=== PATIENT | female | born 1985 | race Caucasian/White ===

== ENCOUNTER 2017-09-29 04:33 | Inpatient (IN) | payer OTHER, MEDICAID ==
[~2017-09-29] VITALS: Ht 153.2 cm; Wt 71.0 kg
[~2017-09-29 04:33] MED LIST: IRON1TAB2 PO; PREN1TAB60 PO
[2017-09-29] MEDS ORDERED: OXYTOCIN 30U/ 0.9% NaCL 500ML 500 ML IV PRN (04:35)
[2017-09-29] MEDS ORDERED: OXYTOCIN 30U/ 0.9% NaCL 500ML 500 ML IV ONE (04:35)
[2017-09-29] MEDS ORDERED: D5%-LACTATED RINGERS 1,000 ML IV SCH (04:35)
[2017-09-29] MEDS ORDERED: OXYTOCIN 30U/ 0.9% NaCL 500ML 500 ML ONE ×2 (04:58→15:38)
[2017-09-29] MEDS ORDERED: NEWBORN KIT ONE (04:58)
[2017-09-29 05:00] VITALS: BP 115/73
[2017-09-29] MEDS ORDERED: PLEASE ENTER HEIGHT AND WEIGHT MC SCH (05:00)
[2017-09-29] MEDS ORDERED: ONDANSETRON 2MG/ML, 2ML IVPush PRN (05:00)
[2017-09-29] MEDS ORDERED: FENTANYL PF 100 MCG/2ML IVPush PRN (05:00)
[2017-09-29] MEDS ORDERED: FENTANYL PF 100 MCG/2ML IV PRN (05:00)
[2017-09-29] MEDS: LACTATED RINGERS 1,000 ML IV SCH ×2 (05:16→09:00)
[2017-09-29 05:25] LABS: HEMATOCRIT 34.7 % (34.6-47.8); HEMOGLOBIN 11.6 g/dL (11.7-16.4); WHITE BLOOD COUNT 3.7 x10^3/uL (3.4-10)
[2017-09-29] MEDS ORDERED: FENTANYL/BUPIV./NS/PF 250 ML EPIDCONT SCH (09:16)
[2017-09-29] MEDS ORDERED: LACTATED RINGERS 1,000 ML IV SCH (09:16)
[2017-09-29] MEDS ORDERED: NALOXONE 0.4 MG/ML, 1ML IVPush PRN (09:30)
[2017-09-29] MEDS ORDERED: LACTATED RINGERS 1,000 ML IVBOLUS PRN (09:30)
[2017-09-29] MEDS ORDERED: EPHEDRINE 50 MG/ML, 1ML IVPush PRN (09:30)
[2017-09-29] MEDS ORDERED: FENTANYL/BUPIV./NS/PF 250 ML EPIDCONT ONE (10:52)
[2017-09-29] MEDS ORDERED: BUPIVACAINE/PF 0.25% ONE (10:52)
[2017-09-29] MEDS ORDERED: BUPIVACAINE 0.25% ONE (11:03)
[2017-09-29] MEDS ORDERED: FENTANYL PF 100 MCG/2ML ONE (11:03)
[2017-09-29] MEDS ORDERED: ACETAMINOPHEN 325 MG TABLET ONE (12:55)
[2017-09-29] MEDS: ACETAMINOPHEN 325 MG TABLET PO PRN (12:57)
[2017-09-29] MEDS ORDERED: MISOPROSTOL 200 MCG TABLET ONE (14:42)
[2017-09-29] MEDS: OXYTOCIN 30U/ 0.9% NaCL 500ML 500 ML IV SCH (16:01)
[2017-09-29] MEDS ORDERED: MISOPROSTOL 200 MCG TABLET PR PRN (16:30)
[2017-09-29] MEDS ORDERED: OXYcodone IR 5MG TABLET PO PRN ×2 (16:30)
[2017-09-29] MEDS ORDERED: ACETAMINOPHEN 325 MG TABLET PO PRN (16:30)
[2017-09-29] MEDS ORDERED: ONDANSETRON 2MG/ML, 2ML IV PRN (16:30)
[2017-09-29] MEDS ORDERED: DOCUSATE 100 MG CAPSULE PO PRN (16:30)
[2017-09-29] MEDS ORDERED: IBUPROFEN 600 MG TABLET PO PRN (16:30)
[2017-09-29 17:17] VITALS: BP 118/77
[2017-09-29 20:15] VITALS: BP 107/65
[2017-09-29 23:35] LABS: HEMATOCRIT 36.6 % (34.6-47.8); HEMOGLOBIN 12.2 g/dL (11.7-16.4); WHITE BLOOD COUNT 6.3 x10^3/uL (3.4-10)
[2017-09-30] VITALS: BP 111/78
[2017-09-30] MEDS: OXYTOCIN 30U/ 0.9% NaCL 500ML 500 ML IV SCH ×2 (02:01→12:01)
[2017-09-30 04:30] VITALS: BP 98/65
[2017-09-30 07:48] VITALS: BP 107/71
[2017-09-30] MEDS ORDERED: PRENATAL VIT/IRON/FA 1 EACH TABLET ONE (07:51)
[2017-09-30] MEDS: ACETAMINOPHEN 325 MG TABLET PO PRN (07:55)
[2017-09-30] MEDS ORDERED: PRENATAL VIT/IRON/FA 1 EACH TABLET PO SCH (09:00)
== END 2017-09-30 16:36 | disposition home or self-care (01) | DRG 775 ==
LOC: LDIP 04:33 → 2NW 16:51
PROVIDERS: ADMIT Obstetrics & Gynecology; ATTEND Obstetrics & Gynecology
PROC: 10E0XZZ Delivery of Products of Conception, External Approach (ICD-10-PCS; principal; 2017-09-29)
PROC: 3E0R3BZ Introduction of Anesthetic Agent into Spinal Canal, Percutaneous Approach (ICD-10-PCS; 2017-09-29)
PROC: 00HU33Z Insertion of Infusion Device into Spinal Canal, Percutaneous Approach (ICD-10-PCS; 2017-09-29)
PROC: 3E0P3VZ Introduction of Hormone into Female Reproductive, Percutaneous Approach (ICD-10-PCS; 2017-09-29)
DX: O80 Encounter for full-term uncomplicated delivery (principal); Z37.0 Single live birth; Z3A.39 39 weeks gestation of pregnancy
CPT/HCPCS: 36415; 85025; 85049; 86850; 86900; J3010; J3490; J2590; J7120